=== PATIENT | male | born 1965 | race Caucasian/White ===

== ENCOUNTER 2024-03-15 11:34 | Inpatient (IN) ==
[2024-03-15] MEDS: Ondansetron 4 mg VIAL 2 MG/ML 2 ml VIAL IV ONE (12:43)
[2024-03-15] MEDS: NS 0.9% 1000 ml BAG 1,000 ML IV ONE ×2 (14:31→16:57)
[2024-03-15 14:48] LABS: Hematocrit 37.9 % (38-53); Hemoglobin 12.6 g/dL (13.2-16.3); Mean Corpuscular Hemoglobin 31.1 pg (27-33); Mean Corpuscular Hgb Conc 33.2 g/dL (31-36); Mean Corpuscular Volume 93.6 fL (80-97); Mean Platelet Volume 7.8 fL (7.5-11.2); Platelet Count 284 10^3/uL (150-450); Red Blood Count 4.05 10^6/uL (4.06-5.63); Red Cell Distribution Width 13.6 % (12-17); White Blood Count 8.9 10^3/uL (3.6-10.2)
[2024-03-15 15:11] LABS: Activated Partial Thrombo Time 34.3 seconds (26.0-38.0); INR 1.18 (0.83-1.13)
[2024-03-15 15:25] LABS: ABS Lymphocytes 0.5 10^3/uL (1.0-4.8); ABS Monocytes 0.2 10^3/uL (0.0-1.1); ABS Neutrophils 8.1 10^3/uL (1.5-7.6); Eosinophil % 0.1 %; Lymphocyte % 5.2 %
[2024-03-15 16:15] LABS: Albumin 3.1 g/dL (3.2-5.2); Albumin/Globulin Ratio 1.3 (1-3); C Reactive Protein 452.96 mg/L (<8.01); Calcium 9.8 mg/dL (8.6-10.3); Creatinine, Serum 1.2 mg/dL (0.67-1.17); Globulin 2.4 g/dL (2-4); Lithium 0.72 mmol/L (0.6-1.2); Potassium 4.3 mmol/L (3.5-5.0); Total Bilirubin 0.7 mg/dL (0.2-1.0); Total Protein 5.5 g/dL (6.4-8.9); eGFR CKD-EPI 69.2 (>60)
[2024-03-15 16:16] LABS: High Sensitivity Troponin 1 Hr 6 pg/mL (<20)
[2024-03-15] MEDS: Piperacillin/Tazobac 3.375 BAG 3.375 GM/100 ML BAG IV ONE (17:03)
[2024-03-15] MEDS: Iodixanol (CONTRAST) 320 MG/ML 100 ML SDV IV ONE (18:14)
[2024-03-15] MEDS: Morphine 2 MG/ML SYRINGE IV ONE (19:54)
[2024-03-15 20:27] LABS: Urine Appearance Clear; Urine Bilirubin Negative (Negative); Urine Blood Negative (Negative); Urine Color Light-Yellow; Urine Glucose Negative (Negative); Urine Ketones Negative (Negative); Urine Nitrite Negative (Negative); Urine Protein Negative (Negative); Urine Specific Gravity 1.027 (1.002-1.030); Urine Urobilinogen Negative (Negative)
[2024-03-15] MEDS ORDERED: Acetaminophen IV 1 GM/100ML 1,000 MG/100 ML BAG IV PRN (20:44)
[2024-03-15] MEDS: Enoxaparin 40 MG/0.4 ML SYR SUBCUT SCH (22:35)
[2024-03-15] MEDS: Albuterol (2.5 MG) 0.5 % CONC 0.5 ML NEB.SOLN INH SCH (22:35)
[2024-03-15] MEDS: cefTRIAXone 1 gm/50 mL D5W 1 GM/50 ML BAG IV SCH (22:35)
[2024-03-15] MEDS: Lactated Ringers 1000 ml BAG 1,000 ML IV SCH (23:08)
[2024-03-16] MEDS ORDERED: Zosyn per Pharmacy NOTE FOLLOW UP SCH (10:00)
[2024-03-16] MEDS: Piperacillin/Tazobac 3.375 BAG 3.375 GM/100 ML BAG IV ONE (10:03)
[2024-03-16 10:37] LABS: Hematocrit 34.8 % (38-53); Hemoglobin 11.6 g/dL (13.2-16.3); Mean Corpuscular Hemoglobin 31.4 pg (27-33); Mean Corpuscular Hgb Conc 33.4 g/dL (31-36); Platelet Count 262 10^3/uL (150-450); Red Cell Distribution Width 14.1 % (12-17); White Blood Count 10.2 10^3/uL (3.6-10.2)
[2024-03-16 10:39] LABS: Urine Appearance Clear; Urine Bilirubin Negative (Negative); Urine Blood Negative (Negative); Urine Color Colorless; Urine Glucose Negative (Negative); Urine Ketones Negative (Negative); Urine Nitrite Negative (Negative); Urine Protein Negative (Negative); Urine Specific Gravity 1.011 (1.002-1.030); Urine Urobilinogen Negative (Negative)
[2024-03-16 11:30] LABS: Calcium 8.8 mg/dL (8.6-10.3); Creatinine, Serum 0.96 mg/dL (0.67-1.17); Magnesium 2.1 mg/dL (1.9-2.7); Potassium 3.7 mmol/L (3.5-5.0); eGFR CKD-EPI 90.5 (>60)
[2024-03-16 11:38] LABS: ABS Lymphocytes 0.3 10^3/uL (1.0-4.8); ABS Monocytes 0.2 10^3/uL (0.0-1.1); ABS Neutrophils 9.7 10^3/uL (1.5-7.6); ABS Nucleated RBC 0.01 10^3/ul; Eosinophil % 0.1 %; Lymphocyte % 2.6 %; Nucleated Red Blood Cells % 0.1 %/100WBC (0.0-0.8)
[2024-03-16] MEDS ORDERED: Albuterol 2.5mg/3 ml (0.083%) NEB.SOLN INH PRN (12:37)
[2024-03-16] MEDS ORDERED: Dextrose 50% Syringe 50 ml 25 GM/50 ML SYRINGE IV PUSH PRN (12:40)
[2024-03-16] MEDS: ZOSYN 3.375 GM Q8H per EXTENDED INFUSION IV SCH (13:43)
[2024-03-16] MEDS: Lidocaine PATCH 5% PATCH TRANSDERM SCH (17:06)
[2024-03-17 08:55] LABS: Calcium 8.9 mg/dL (8.6-10.3); Creatinine, Serum 0.83 mg/dL (0.67-1.17); Potassium 3.5 mmol/L (3.5-5.0); eGFR CKD-EPI 100.2 (>60)
[2024-03-17 14:12] VITALS: BP 114/64
[2024-03-17] MEDS ORDERED: Enoxaparin 40 MG/0.4 ML SYR SUBCUT SCH (20:00)
== END 2024-03-17 15:00 | disposition home or self-care (01) | DRG 871 ==
LOC: ED 11:34 → EDHOLD 11:34 → SUATTDRO 19:17 → OBSVTOIN 19:17 → MEDTELE 03-16 10:16
PROVIDERS: ADMIT Internal Medicine; ATTEND Internal Medicine